=== PATIENT | male | born 1970 | race Caucasian/White ===

== ENCOUNTER 2019-12-03 00:28 | Day surgery (SDC) | payer OTHER, SELFPAY ==
[2019-11-30 09:46] VITALS: BMI 34.9
[2019-12-03 09:40] VITALS: BP 154/93; PULSE 52; RESP 18; TEMP 36.1; O2SAT 99; BMI 34.4
[2019-12-03] MEDS: LACTATED RINGERS 1,000 ML 150 ML IV CONT (09:48)
--- NOTE | 2019-12-03 09:51 | WPDANESEPPF ---
Anes - Initial Pre Proc Eval Procedure: Operation Date: 12/03/19 10:30 Proposed Procedures p Screening Colonoscopy - Jonathon Dodd MD Date/Time: 12/03/19 09:51 Surgeon: Jonathon Dodd MD Pre Op Diagnosis: neoplasm screening Patient Data Age: 49 Gender: M Height: 6 ft 9 in Weight: 145.9 kg Last Vital Signs Temp 36.1 C L 12/03/19 09:40 Pulse 52 L 12/03/19 09:40 Resp 18 12/03/19 09:40 BP 154/93 H 12/03/19 09:40 Pulse Ox 99 12/03/19 09:40 Allergies Allergy/AdvReac Type Severity Reaction Status Date / Time No Known Allergies Allergy Mild Verified 12/03/19 09:38 Home Medications Medication Instructions Recorded Confirmed Type aspirin 81 mg tablet,delayed 81 mg PO DAILY 10/28/19 11/30/19 History release cyanocobalamin (vitamin B-12) 1,000 mcg PO DAILY 10/28/19 11/30/19 History 1,000 mcg capsule multivitamin 1 tablet PO DAILY 10/28/19 11/30/19 History ferrous sulfate 325 mg (65 mg 325 mg PO DAILY #90 tablet 11/08/19 11/30/19 Rx iron) tablet allopurinol 300 mg tablet 300 mg PO DAILY #30 tablet 11/29/19 11/30/19 Rx colchicine 0.6 mg capsule 0.6 mg PO BID #60 cap 11/29/19 11/30/19 Rx Patient hx anesthesia problems: none Family hx anesthesia problems: none PMFSH Past Medical History Medical History (Updated 12/03/19 @ 09:52 by Trace Alvarez MD) Gout History of atrial fibrillation Surgical History Surgical History H/O gastric bypass 2008 H/O laminectomy 2002 Family History Family History Father Diabetes mellitus Gout Hypertension Acute myocardial infarction Grandparent Heart disease Rheumatoid arthritis Acute myocardial infarction H/O heart bypass surgery Sibling Gout Rheumatoid arthritis Hypertension Social History Social History Smoking status: Never smoker Alcohol intake: current Anes - Eval Final PreProcedure Day of Procedure 12/03/19 09:51 Patient weight: obese Heart: regular rate and rhythm Lungs: clear to auscultation Airway: Mallampati scale class II Neurological: alert and oriented Last oral intake: >/= 8 hours ASA classification: III Emergent: no Anesthetic plan: proceed Anesthesia type and monitoring: general GIVS and standard monitoring Informed Consent: The patient's anesthetic plan and its attendant risks and benefits were discussed with the patient/family/POA. Questions were solicited and answers provided to the satisfaction of the patient/family/POA.
--- NOTE | 2019-12-03 09:58 | PM.HPGS ---
History of Present Illness History of Present Illness Consent: Risks, benefits, and alternatives have been discussed and questions answered. Patient agrees to proceed with procedure. Chief complaint: neoplasm screening Narrative: Brian Bello is a 49 year old W male referred for his 1st screening colonoscopy. Patient is asymptomatic and there is no family history of colon polyps or colon cancer. Patient underwent gastric bypass 2008 and lost 215 lb. [facility] Past Medical History Medical History (Updated 12/03/19 @ 09:52 by Trace Alvarez MD) Gout History of atrial fibrillation Surgical History Surgical History H/O gastric bypass 2008 H/O laminectomy 2002 Family History Family History Father Diabetes mellitus Gout Hypertension Acute myocardial infarction Grandparent Heart disease Rheumatoid arthritis Acute myocardial infarction H/O heart bypass surgery Sibling Gout Rheumatoid arthritis Hypertension Social History Social History Smoking status: Never smoker Alcohol intake: current Meds Home Medications and Allergies Home Medications Medication Instructions Recorded Confirmed Type aspirin 81 mg tablet,delayed 81 mg PO DAILY 10/28/19 11/30/19 History release cyanocobalamin (vitamin B-12) 1,000 mcg PO DAILY 10/28/19 11/30/19 History 1,000 mcg capsule multivitamin 1 tablet PO DAILY 10/28/19 11/30/19 History ferrous sulfate 325 mg (65 mg 325 mg PO DAILY #90 tablet 11/08/19 11/30/19 Rx iron) tablet allopurinol 300 mg tablet 300 mg PO DAILY #30 tablet 11/29/19 11/30/19 Rx colchicine 0.6 mg capsule 0.6 mg PO BID #60 cap 11/29/19 11/30/19 Rx Allergies Allergy/AdvReac Type Severity Reaction Status Date / Time No Known Allergies Allergy Mild Verified 12/03/19 09:38 Vital Signs Vital Signs - 24 hr 12/03/19 09:40 Temperature 36.1 C L Pulse Rate 52 L Respiratory Rate 18 Blood Pressure 154/93 H Pulse Oximetry 99 Exam Const: Orientation/consciousness: patient oriented x3 Resp: Auscultation: clear to auscultation bilaterally Cardio: Rate: regular rate Rhythm: regular rhythm Heart sounds: no murmurs GI: GI Palp: Yes Soft to palpation, No Tenderness to palpation present (GI), Yes No hepatosplenomegaly present and No Palpable mass present Auscultation: normal bowel sounds Neuro: General: patient oriented x3 and no focal motor deficits Extrem: General: no pedal edema Assessment and Plan Additional Plan Screening colonoscopy in average risk patient
[2019-12-03 10:58] VITALS: BP 129/95; PULSE 116; RESP 22; O2SAT 100
[2019-12-03 11:08] VITALS: BP 132/100; BP 133/98; PULSE 100; PULSE 99; RESP 22; RESP 26; O2SAT 100
== END 2019-12-03 11:32 | disposition home or self-care (01) ==
PROVIDERS: PCP Internal Medicine; Visit Provider Internal Medicine Gastroenterology
PROC: 0DJD8ZZ Inspection of Lower Intestinal Tract, Via Natural or Artificial Opening Endoscopic (ICD-10-PCS; CPT 45378; principal; 2019-12-03 10:30)
DX: Z12.11 Encounter for screening for malignant neoplasm of colon (principal); D12.5 Benign neoplasm of sigmoid colon; M10.9 Gout, unspecified; Z79.82 Long term (current) use of aspirin; Z98.84 Bariatric surgery status; E66.9 Obesity, unspecified; Z68.34 Body mass index [BMI] 34.0-34.9, adult
CPT/HCPCS: 45385; 88305; J2704; J7120

== ENCOUNTER 2020-12-27 12:02 | Outpatient (CLI) | payer OTHER, SELFPAY ==
--- NOTE | ~2020-12-27 | XR_ITS ---
XR lumbar spine 2-3V DATE: 12/27/2020 12:29 INDICATION: Low back pain TECHNIQUE: AP, lateral and coned lateral lumbosacral COMPARISON: None FINDINGS: There is diffuse osteopenia. There is prominent rotatory levoscoliosis of the lumbar spine. There is severe degenerative disc disease throughout the lumbar and lumbosacral spine. No fracture or bone destruction. The lumbar pedicles are intact. The sacroiliac joints are normal. IMPRESSION: Diffuse osteopenia Rotatory levoscoliosis Severe degenerative disc disease Reviewed, dictated and finalized at location A.
--- NOTE | ~2020-12-27 | XR_ITS ---
EXAMINATION: XR hip LT min 2V DATE: 12/27/2020 12:29 INDICATION: Left hip pain. TECHNIQUE: 2 views of left hip were obtained. COMPARISON: None. FINDINGS: Bone alignment is normal. No fracture. There is mild left hip osteoarthritis. IMPRESSION: 1. Mild left hip osteoarthritis. Reviewed, dictated and finalized at location A.
== END 2020-12-27 12:03 | disposition home or self-care (01) ==
PROVIDERS: PCP Internal Medicine; Visit Provider Clinical Nurse Specialist
DX: M85.88 Other specified disorders of bone density and structure, other site (principal); M51.36 Other intervertebral disc degeneration, lumbar region; M16.12 Unilateral primary osteoarthritis, left hip
CPT/HCPCS: 72100; 73502

== ENCOUNTER 2021-04-03 14:00 | Outpatient (RCR) | payer OTHER, SELFPAY ==
--- NOTE | 2021-02-19 16:26 | PTOPEVAL ---
PHYSICAL THERAPY EVALUATION AND PLAN OF CARE Thank you for referring Brian Bello to [facility].? The patient is scheduled to be seen for therapy?1x/week for 4-6 weeks. Please review, sign, date and return this plan of care CATHI. I agree with and certify that the following plan of care is medically necessary. Referring Physician Date Attending Provider: Laurita Retana, SERVER ADMINISTRATOR Evaluation Outpatient Past Medical History Neurological History Hx Neurological Disorders No Significant History Cardiovascular History Hx Atrial Fibrillation Yes: cardio verted into rhythm no meds x2 last time 2009? Respiratory History Hx Respiratory Disorders No Significant History Gastrointestinal History Hx Gastric Bypass Surgery Yes: 2009 Genitourinary History Hx Genitourinary Disorders No Significant History Musculoskeletal History Hx Gout Yes Hx Spinal Surgery Yes: laminectomy lumbar 2002 Hematological History Hx Blood Transfusion Reaction Yes: post gastric bypass 2009 Endocrine History Diagnosis back pain Cause chronic Subjective Information 2002 laminectomy but does not Query Text:As Reported By Patient/ think that the surgery went Family very well at the time and now as he is getting older he is feeling more symptoms. 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 Reports that he has general achiness after a day of work and activity (yard work, etc). 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 reports that he does have pain that goes down the left leg and describes it as sometimes a falling asleep feeling. States that the leg pain is really the biggest aggravating factor right now, but states that his back is hurting daily . Reports that he has been trying to do piriformis stretches after he exercises. Self Report Pain Assessment Back Reported Pain Level 2 Pain Description Aching Pain Frequency Chronic,Continuous Pain Aggravating Factors Exercise/Activity,Lifting Pain Score Pain Score 2: Self Report Interventions Used Interventi
--- NOTE | 2021-04-03 14:43 | PTOPEVAL ---
PHYSICAL THERAPY DISCHARGE NOTE Thank you for referring Brian Bello to [facility].? Please review, sign, date and return this plan of care CATHI. I agree with and certify that the following plan of care is medically necessary. Referring Physician Date Attending Provider: Laurita Retana, HEALTH INFORMATION MANAGEMENT DIRECTOR Discharge Diagnosis back pain Cause chronic Subjective Information reports that he has been Query Text:As Reported By Patient/ overall doing well except this Family weekend he stood for 4 hours and since then has been aggravated. He states that he can bend forward but feels like he cannot bend backward - feels like there is a lot of pain in the low back Self Report Pain Assessment Back Reported Pain Level 1 Pain Description Aching Pain Frequency Chronic,Continuous Pain Aggravating Factors Exercise/Activity,Lifting Pain Score Pain Score 1: Self Report Interventions Used Interventions Used By Clinicians Exercise,Joint Mobilization Cervical and Lumbar ROM Lumbar ROM Lumbar Flexion Active Floor Query Text:Hands to: Lumbar Extension (0-40) 15 Query Text:Active in Degrees Lateral Flexion lateral flexion symmetrical to Query Text:Active Hands to: lateral side of knee Lower Extremity Muscle Strength Testing Hip Strength Bilateral Hip Flexion Strength 5 Normal Hip Extension Strength 4+ Good + Hip Abduction Strength 4+ Good + Knee Strength Bilateral Knee Flexion Strength 5 Normal Knee Extension Strength 5 Normal Ankle Strength Bilateral Ankle Strength Comments unilateral heel raises progressing Muscle Length Testing Muscle Length Testing Latissmus Dorsi Muscle Length (R) Mild Tightness,(L) Mild Tightness [place] Test Shortened Muscles Short (R) Iliopsoas,Short (L) Iliopsoas,Short (R) Rectus Femoris,Short (L) Rectus Femoris Piriformis w/Hip Flexion >90 Degrees (R) Mild Tightness,(L) Mild Tightness Left Hamstring Length -10 Query Text:(90 - 90 Position) Right Hamstring Length -10 Query Text:(90 - 90 Position) Right Prone Knee Flexor Muscle Length ( 100 degrees) Left Prone Knee Flexor Muscle Length ( 100 degrees) Posture Standing Position Posture Evaluation View Anterior Thoracic Spine Posture Neutral
== END 2021-04-04 11:14 | disposition home or self-care (01) ==
LOC: ANHPT 14:00
PROVIDERS: PCP Internal Medicine; Visit Provider Nurse Practitioner Adult Health
DX: M54.16 Radiculopathy, lumbar region (principal); M54.42 Lumbago with sciatica, left side; G89.29 Other chronic pain
CPT/HCPCS: 97110; 97162

== ENCOUNTER 2022-02-21 09:41 | Outpatient (CLI) | payer OTHER, SELFPAY ==
--- NOTE | ~2022-02-21 | US_ITS ---
EXAMINATION: US venous doppler [facility] DATE: 02/21/2022 11:01 INDICATION: Left lower limb pain TECHNIQUE: Chou scale images without and with compression and Doppler images of the left lower extrem ity veins were obtained. COMPARISON: None FINDINGS: The left common femoral vein, profunda femoral vein, femoral vein, popliteal vein, peroneal trunk, posterior tibial veins, and greater saphenous vein are patent. There is partial thrombosis in the greater saphenous vein. IMPRESSION: 1. Superficial, partial thrombosis of the greater saphenous vein. No evidence of deep venous thrombos is. Reviewed, dictated and finalized at location A. IMPRESSION: 1. Superficial, partial thrombosis of the greater saphenous vein. No evidence o f deep venous thrombosis.
== END 2022-02-21 09:42 | disposition home or self-care (01) ==
PROVIDERS: PCP Internal Medicine; Visit Provider Internal Medicine
DX: M79.89 Other specified soft tissue disorders (principal); I82.812 Embolism and thrombosis of superficial veins of left lower extremity
CPT/HCPCS: 93971

== ENCOUNTER 2023-02-13 12:41 | Emergency (ER) | payer OTHER, SELFPAY ==
[2023-02-13 12:54] VITALS: BP 144/100; PULSE 80; RESP 16; TEMP 36.6; O2SAT 99
--- NOTE | 2023-02-13 12:54 | ED.URI ---
HPI - URI/Sore Throat General Chief Complaint: Upper Respiratory Infection Stated Complaint: sore throat,cough,congestion Time Seen by Provider: 02/13/23 12:54 Source: patient and RN notes reviewed Mode of arrival: ambulatory Limitations: no limitations History of Present Illness HPI Narrative: 52-year-old male presented for complaint of sinus congestion with mild drainage, sore/scratchy throat, and nonproductive cough for almost 2 weeks. Endorses fatigue today. Taking Joie-Mcneal sinus medication. Denies shortness of breath, wheezing, nausea vomiting, diarrhea, fevers or chills. States granddaughter is sick and attends daycare. MD elicited complaint: cough Related Data Home Medications Medication Instructions Recorded Confirmed aspirin 81 mg tablet,delayed 81 mg PO DAILY 10/28/19 02/13/23 release (Adult Low Dose Aspirin) cyanocobalamin (vitamin B-12) 1,000 mcg PO DAILY 10/28/19 02/13/23 1,000 mcg capsule multivitamin 1 tablet PO DAILY 10/28/19 02/13/23 ferrous sulfate 325 mg (65 mg 325 mg PO DAILY 10/30/22 02/13/23 iron) tablet (Feosol) Allergies Allergy/AdvReac Type Severity Reaction Status Date / Time No Known Allergies Allergy Mild Verified 02/13/23 12:51 Review of Systems Review of Systems: CONSTITUTIONAL: Endorses malaise, Denies chills, sweats, fever EYES: Denies visual changes, redness, or discharge ENT: Reports sore throat, congestion, denies sinus pain, otalgia CARDIOVASCULAR: Denies chest pain, palpitations, edema RESPIRATORY: Reports cough, post nasal drainage. Denies dyspnea GASTROINTESTINAL: Denies abdominal pain, nausea, vomiting, diarrhea SKIN: Denies rash or itching MUSCULOSKELETAL: Denies myalgia NEUROLOGIC: Denies headache PMFSH Past Medical History Medical History Family history of diabetes mellitus Gout History of atrial fibrillation Surgical History Surgical History H/O cardiac radiofrequency ablation 10/09/2021 H/O gastric bypass 2009 H/O laminectomy 2002 Family History Family History Father Diabetes mellitus Gout Hypertension Acute myocardial infarction Grandparent Heart disease Rheumatoid arthritis Acute myocardial infarction H/O heart bypass surgery Sibling Gout Rheumatoid arthritis Hypertension Social History Social History Smoking status: Never smoker Alcohol intake: former Lack of Transportation: No Lack of Food: Never True Current Housing: I Have Housing Concerned About Future Housing: No Difficulty Paying Gas/Electric Bills: No Difficulty Paying for Meds: No Currently Unemployed: No Education: Master's Degree or Higher Difficulty w/ Childcare or Family Care: No Exam Narrative: GENERAL: well-appearing, nontoxic no acute distress. HEAD: Normocephalic EYES: PERRLA, conjunctivae clear ENT: Mucous membranes moist. TM pearly webb with dull light reflex bilaterally; no tragal tenderness. Oropharynx mildly erythematous without lesions or exudate, no drooling, no hoarseness, no trismus, uvula midline. No tripod positioning, muffled voice, soft palate or pharyngeal wall bulging NECK: Supple. No lymphadenopathy CHEST: Clear to auscultation, breath sounds equal. No wheezing, rhonchi, rales, or stridor. No respiratory distress, speaks in full sentences. HEART: Regular rate and rhythm. No murmur heard. SKIN: Warm, dry, no rash. NEURO: Alert and oriented x3. PSYCH: Normal mood and affect Course Course Emergency Course: Patient is aware of diagnosis, understands and agrees to treatment plan. Anticipatory guidance given. Patient agrees to follow-up as directed and is aware of reasons to seek care at the emergency department. Portions of this record may have been created with voice re
== END 2023-02-13 13:10 | disposition home or self-care (01) ==
PROVIDERS: Emergency Provider Nurse Practitioner Family; PCP Internal Medicine
DX: J06.9 Acute upper respiratory infection, unspecified (principal); H10.9 Unspecified conjunctivitis; Z98.84 Bariatric surgery status; Z79.82 Long term (current) use of aspirin
CPT/HCPCS: 87081; 87880; 99213; G0463

== ENCOUNTER 2023-05-07 08:41 | Outpatient (CLI) | payer OTHER, SELFPAY ==
--- NOTE | 2023-05-17 17:50 | WPDHOMESLEEP ---
Sleep Study - Home Unattended Date of Study: 05/07/23 Ordering Provider: Brian Riley DO Interpreting Provider: Monica Styles DO Home Sleep Study Type: Watch PAT Height: 2.06 m Weight: 141.974 kg Body Mass Index: 33.5 Neck Circumference (inches): 18 [place]: 7 Reason for Sleep Study Unrefreshing sleep, daytime hypersomnia Sleep History The patient is a 52-year-old male with gout, hypogonadism, obesity and history of atrial fibrillation that had a sleep study ordered by his primary care physician for evaluation of sleep apnea. 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 He denies awakening from sleep short of breath. He denies awakening at night with heartburn, belching or cough. He rarely snores and is rarely loud enough that others complain. He denies having trouble sleeping when he has a cold. He denies waking up gasping for air throughout the night. He denies having breathing problems at night observed by himself or others. He denies sweating excessively at night. He denies having heart palpitations or irregular heartbeats during the night. He frequently falls asleep during the day but never while driving. He denies sleep paralysis, cataplexy and hypnagogic / hypnopompic hallucinations. He occasionally has trouble at school or work due to sleepiness. He denies feeling afraid of going to sleep. He denies having nightmares. He occasionally remembers his dreams. He occasionally has thoughts racing through his mind. He rarely feels sad or depressed. He occasionally has anxiety. He denies having muscular tension. He denies noticing parts of his body jerk. He denies kicking during the night. He occasionally has crawling and aching feelings in his legs and occasionally has leg pain during the night. He denies grinding his teeth during sleep and denies awakening with morning jaw pain. He is occasionally bothered by pain during the day but rarely awakened by pain during the night. He occasionally wakes up feeling stiff in the morning. He denies waking up with sore or achy muscles. He occasionally wakes up with pain in the neck, spine or other joints. The patient goes to bed at 11:00 p.m. on weekdays and at 11:30 p.m. on the weekends. It takes him 5-10 minutes fall asleep. He wakes up 1-2 times throughout the night to urinate or change positions. He is able to fall back asleep within 5 minutes. He wakes up at 5:30 a.m. on weekdays and at 6:00 a.m. on the weekends. He typically gets 5-6 hours of sleep per night. He will stay in bed for 1 minute after waking up in the morning. He currently lives with his , adult child and mother. He will consume caffeinated beverages within 2 hours of bedtime. He does not engage in physical exercise before bedtime. He will watch television before falling asleep. He will take naps in the afternoon or the evening and they are refreshing. He consumes 12 cups of coffee per day. He consumes 2 alcoholic beverages per day. He denies tobacco and recreational drug use. [facility] Past Medical History Medical History Family history of diabetes mellitus Gout History of atrial fibrillation Long-term current use of testosterone cypionate Surgical History Surgical History H/O cardiac radiofrequency ablation 10/09/2021 H/O gastric bypass 2008 H/O laminectomy 2002 Family History Family History Father Diabetes mellitus Gout Hypertension Acute myocardial infarction Grandparent Heart disease Rheumatoid arthritis Acute myocardial infarction H/O heart bypass surgery Sibling Gout Rheumatoid arthritis Hypertension Social History Social History Smoking status: Never smoker Alcohol intake: former Lack of Transpo
[2023-05-17 18:00] VITALS: BMI 33.5
== END 2023-05-08 08:13 | disposition home or self-care (01) ==
LOC: ANHCSM 08:41
PROVIDERS: PCP Internal Medicine; Visit Provider Internal Medicine
DX: G47.19 Other hypersomnia (principal); G47.33 Obstructive sleep apnea (adult) (pediatric)
CPT/HCPCS: 95800

== ENCOUNTER 2024-06-16 10:03 | Outpatient (RCR) | payer OTHER, SELFPAY ==
--- NOTE | 2024-06-16 12:52 | PTOPEVAL1 ---
Assessment and note entered by Tucker Shetty, PT, DPT Evaluation Information Assessment Status Evaluation Diagnosis juan shoulder pain ICD-10 Condition Codes (PT) M25.511,M25.512 Subjective Information Pt reports chronic R shoulder pain, he states he feels a popping sound when he is working out. About a month ago he was doing incline chest press , he did not notice and pain during but noticed a pain in his L bicep and tricep pain with activity. He states his L shoulder has been getting progressively better but is still bothersome. He states for a while he has limited ROM and strength for about a month, he states he is back to his normally weight except for any overhead. Reported Pain Level Pain Score 1: Self Report Assessment PT Clinical Summary Pt presents to therapy today for his initial evaluation with a complaint of acute L shoulder pain. Today he demonstrates decreased L active shoulder ROM and strength when compared to his R side. His scapulae rest in a protracted position and has a moderate amount of winging. With active abduction he has poor scapular control with accessory upper trap activation. He demonstrates excessive winging in a closed chair position. Skilled therapy services are indicated to address strength and stability concerns, to improve shoulder mechanics, to manage pain, and to return to PLOF. Plan of Care Interventions Electrical Stimulation,Manual Therapy,Neuro Re- education,Patient/Caregiver Educati,Therapeutic Activities,Therapeutic Exercise PT Services Indicated Yes Treatment Frequency and 1x/wk for 4 visits Duration These treatments will address the objective and functional deficits as defined above. The patient will be advanced safely and appropriately in order for the patient to progress towards his/her prior level of function. Additional exercises will be introduced and as well as a comprehensive home exercise program upon discharge, if needed, ?to ensure carryover of functional gains achieved in the clinic. This treatment plan has been reviewed and agreement upon by the patient.
--- NOTE | 2024-07-05 11:38 | PTOPDC ---
Assessment and note entered by Tucker Shetty, PT, DPT Evaluation Information Assessment Status Discharge - Pt Not Present Diagnosis juan shoulder pain ICD-10 Condition Codes (PT) M25.511,M25.512 Subjective Information Pt called to follow up, states he is doing well with his HEP and does not need to continue therapy . Assessment PT Clinical Summary Pt was evaluated on 06/16/24 and has been participating in an HEP since. Will be discharged at this time per his request.
== END 2024-07-05 16:02 | disposition home or self-care (01) ==
LOC: ANHGOSHPT 10:03
PROVIDERS: PCP Internal Medicine; Visit Provider Internal Medicine
DX: M77.8 Other enthesopathies, not elsewhere classified (principal); M25.511 Pain in right shoulder; M25.512 Pain in left shoulder
CPT/HCPCS: 97110; 97161; 97530

== ENCOUNTER 2025-01-14 00:24 | Day surgery (SDC) | payer OTHER, SELFPAY ==
[2025-01-03 14:25] VITALS: BMI 27.8
--- OUTSIDE RECORDS SUMMARY | 2025-01-14 00:27 | XMS_ITS | CONTINUITY OF CARE DOCUMENT ---
Author Name gita pelayo Address Unknown Organization [facility] Address [address] [address] [place] [address] Phone [phone] Care Team Providers Care Pie Cutter Name Role Phone Darlyn HULL, Tano Unavailable STEPHY MARTINEZ MD Unavailable STEPHY MARTINEZ MD Unavailable [phone] PROBLEMS Condition Status Date Provider Notes Other symptoms involving car diovascular system active Tano Santizo MD Family History of Hypertension: active ? Jose Santizo MD Palpitations active Tano Santizo MD Gout active Tano Santizo MD Obesity active Tano Santizo MD Atrial Fibrillation active Tano Santizo MD ENCOUNTERS Date Type Provider Location Encounter Diag nosis - In-person encounter Office Visit Tano Santizo MD [facility] - In-person encounter Office Visit Tano Santizo MD [facility] Other symptoms involving cardiovascular systemFamily History of Hypertension:Palpitati onsGoutObesityAtrial Fibrillation VITAL SIGNS Date Observation Value Provider Body Mass Index (Ratio) 35.92 kg/m2 Jose Santizo MD blood pressure, cuff size large Cr dania Murphy blood pressure, diastolic 100 mm[Hg] Cr dania Murphy blood pressure, systolic 130 mm[Hg] Cry stal Jeffrey oxygen saturation, oximetry 98 % Mireya Murphy respiratory rate E&M 17 /min Mireya Murphy pulse rate 64 /min Mireya forrester weight E&M 327 [lb_av] Mireya forrester height E&M 80 [in_i] Mireya forrester Body Mass Index (Ratio) 37.24 kg/m2 Jose Santizo MD blood pressure, resting No Rodrigo Herronby blood pressure, diastolic 80 mm[Hg] Hernesto King blood pressure, systolic 120 mm[Hg] Rosy King oxygen saturation, oximetry 98 % Jazmín King respiratory rate E&M 16 /min Jazmín King pulse rate 68 /min Jazmín King blood pressure, cuff size regular Hernesto King height E&M 80 [in_i] Jazmín King weight E&M 339 [lb_av] Jazmín [place] ALLERGIES No Known Drug Allergies HISTORY OF MEDICATION USE Medication Status Instructions Dates Provider Indications Com ments LEV ASPIRIN EC LOW DOSE 81 MG ORAL TABLET DELAYED RELEASE active take one tablet by mouth once daily Mireya Murphy MITIGARE 0.6 MG ORAL CAPSULE active take one capsule by mouth once daily Mireya Murphy #180, 90 days supply, Filled 01/01/2018 B-12 100 MCG ORAL TABLET active TAKE ONE TABLET BY MOUTH ONCE DAILY Jazmín King MULTIVITAMINS ORAL CAPSULE active TAKE ONE TABLET BY MOUTH ONCE DAILY Jazmín King COLCRYS TABLET completed ONCE DAILY - Mireya Murphy ALLOPURINOL 100 MG ORAL TABLET active TAKE ONE TABLET BY MOUTH ONCE DAILY Jazmín King SOCIAL HISTORY Date Observation Value Provider social history E&M Marital Statu s: Renny hildren: 3 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 Tano Santizo MD social history reviewed E&M revi ewed - no changes required Tano Santizo MD number of grandchildren Tano King smoking status Never smoker Jazmín King FAMILY HISTORY Family Member Condition Full Brother Family History of Hy pertension: Father Family History of Co ngestive Heart Failure: Father Family History of Di abetes: INSURANCE PROVIDERS Payer name Policy type / Coverage type [place] red [employer] party ID AETNA [facility] Other [id number] ADVANCE DIRECTIVES Name Date DISCUSSED - NO DECISION MADE TREATMENT PLAN Date Name Performer Cardiology Tano Santizo MD Cardiology Tano Santizo MD Cardiology Tano Santizo MD Cardiology Tano Santizo MD Cardiology Tano Santizo MD Cardiology Tano Santizo MD Cardiology Tano Santizo MD Cardiology Tano Santizo MD Cardiology Tano Santizo MD Date Name STR - Nuclear Complete Echo Mobile Cardiac Tele HISTORY OF PROCEDURES Procedure Date Procedure Name Provider Procedure Notes S tatus EKG Tano Santizo MD complete d Stress EKG Stephy De Los Santos MD complet ed Cardiolite, 2 units Stephy De Los Santos MD completed SPECT Images Stephy De Los Santos MD compl eted Mobile Cardiac Telem etry - Tech Tano Santizo MD completed Mobile Cardiac Telem etry - Prof Tano Santizo MD completed EKG Tano Santizo MD complete d SNOMED-CT: [id number] Current Medications Documented Tano Santizo MD completed
--- OUTSIDE RECORDS SUMMARY | 2025-01-14 00:27 | XMS_ITS | Clinical Summary ---
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 Gender Identity Not on file Sexual Orientation Not on file Plan of Treatment Health Maintenance Due Date Last Done Comments DTAP/TDAP/TD VACCINES (1 - Tdap) 1988 HEPATITIS B VACCINES (1 of 3 - 19+ 3-dose series) 1988 COLORECTAL SCREENING 2014 Colorectal Cancer Screening 2014 FIT-DNA Q 3 years 2014 FIT/FOBT Q 1 year 2014 Flex Sig/CT Colonography Q 5 years 2014 ZOSTER VACCINE (1 of 2) 2019 INFLUENZA VACCINE (#1) 2024 PNEUMOCOCCAL VACCINE 0-49 YEARS Aged Out No longer eligible based on patient's age to complete this topic Insurance AETNA CHOICE POS II Care Teams Computer Systems Software Engineer Relationship Specialty Start Date End Date Hans Carl MD [address] [place] [address] PCP - General Internal Medicine 12/18/18
--- OUTSIDE RECORDS SUMMARY | 2025-01-14 00:27 | XMS_ITS | Referral Summary ---
Author Organization [facility] Address [address] [place] [address] Care Team Providers Care Trade Union Secretary Name Role Phone Brian Riley DO Primary Care Provider [phone] Hans Carl MD Unavailable [phone] Miscellaneous, Not In File Unavailable Unava ilable Shanice Dow PAYMENT SPECIALIST Unavailable [phone] Lucie Nance MD Unavailable Laurita Retana PAYMENT SPECIALIST Unavailable Laurita Retana PAYMENT SPECIALIST Unavailable Allergies No known active allergies Medications allopurinoL (ZYLOPRIM) 300 mg tablet Take 300 mg by mouth daily 10/26/2020 Active colchicine (COLCRYS) 0.6 mg capsule Take 0.6 mg by mouth 2 (two) times a day 10/03/2020 Active cyanocobalamin (Vitamin B-12) 100 mcg tablet Take 100 mcg by mouth daily 03/26/2017 Active aspirin 81 mg enteric coated tablet Take 81 mg by mouth daily Active metoprolol tartrate (LOPRESSOR) 50 mg immediate release tablet Take 1 tablet (50 mg total) by mouth 2 (two) times a day as needed (palpitation s/ heart rate >120) 30 tablet 09/10/2021 Active gabapentin (NEURONTIN) 300 mg capsule Take 1 capsule (300 mg total) by mouth every 8 (eight) hours 90 capsule 12/18/2021 Active Active Problems Problem Noted Date Diagnosed Date Gout 09/09/2021 Obesity 09/09/2021 Venous hypertension of left lower extremity 03/2 10/2020 Assessment & Plan (12/31/2020 8:07 PM CDT): Patient has chronic venous hypertension left lower extremity with advanced skin changes. Documented reflux mid distal GSV with incompetent cost accountant vein. Have recommended laser ablation left great saphenous vein calf vein cost accountant ligation and division with phlebectomies. The procedure, indications and all risks have been thoroughly explained to the patient he understands and agrees to proceed Atrial flutter (CMS/HCC) 05/31/2014 Overview (01/16/2017): A Fib / Flutter Lumbago 07/01/2013 Lumbar radiculopathy 07/01/2013 Immunizations Immunization Administration Dates Next Due Tdap 06/21/2018 Social History Tobacco Use Types Packs/Day Years Used Date Smoking Tobacco: Never Smokeless Tobacco: Never Tobacco Cessation:Counseling Given: No Alcohol Use Standard Drinks/Week Comments Yes 0 (1 standard drink = 0.6 oz pur e alcohol) Social Connection and Isolat ion Panel [NHANES] Answer Date Recorded In a typical week, how many times do you talk on the phone with family, friends, or neighbors? More than three times a week 09/10/2021 How often do you get togethe r with friends or relatives? More than three times a week 09/10/2021 How often do you attend chur ch or presybeterian services? More than 4 times per year 09/10/2021 Do you belong to any clubs o r organizations such as lutheran groups, unions, fraternal or athletic groups, or school groups? No 09/10/2021 How often do you attend meet ings of the clubs or organizations you belong to? Never 09/10/2021 Are you , , di vorced, , never , or living with a partner? 09/10/2021 AUDIT-C Answer Date Recorded Q1: How often do you have a drink containing alc ohol? 2-3 times a week 10/09/2021 Q2: How many drinks containi ng alcohol do you have on a typical day when you are drinking? 1 or 2 10/09/2021 Q3: How often do you have si x or more drinks on one occasion? Never 10/09/2021 Overall Financial Resource Strain (CARDIA) Answe r Date Recorded How hard is it for you to pa y for the very basics like food, housing, medical care, and heating? Not hard at all 09/10/2021 Hunger Vital Sign Answer Date Recorded Within the past 12 months, y ou worried that your food would run out before you got the money to buy more. Never true 09/10/20 21 Within the past 12 months, t he food you bought just didn't last and you didn't have money to get more. Never true 09/10/2021 PRAPARE - Transportation Answer Date Re corded In the past 12 months, has l ack of transportation kept you from medical appointments or from getting medications? No 08/14 In the past 12 months, has l ack of transportation kept you from meetings, work, or from getting things needed for daily living? No 09/10/2021 Housing Stability Vital Sign Answer Frantz e Recorded In the last 12 months, was t here a time when you were not able to pay the mortgage or rent on time? No 09/10/2021 In the last 12 months, how many places have you lived? 1 09/10/2021 In the last 12 months, was t here a time when you did not have a steady place to sleep or slept in a fpc (including now)? No 09/10/2021 Sex and Gender Information Value Date Recorded Sex Assigned at Not on file Legal Sex Male 2:16 AM GAMB CUTTER Gender Identity Not on file Sexual Orientation Not on file Last Filed Vital Signs Vital Sign Reading Time Taken Comments Blood Pressure 143/88 01/02/2022 8:08 AM CDT Pulse 65 01/02/2022 8:08 AM CDT Temperature 36.4 C (97.6 F) 01/02/2022 8:08 AM CDT Respiratory Rate 18 01/02/2022 8:08 AM CDT Oxygen Saturation 97% 01/02/2022 8:08 AM CDT Inhaled Oxygen Concentration - - Weight 170.2 kg (375 lb 3.2 oz) 12/18/2021 9:23 AM GAMB CUTTER Height 205.7 cm (6' 9 ) 12/18/2021 9:23 AM GAMB CUTTER Body Mass Index 40.21 12/18/2021 9:23 AM GAMB CUTTER Plan of Treatment Not on file Medical Devices Implanted Type Area Die Out Worker Device Identifier Shelf Expiration Date Model / Serial / Lot [employer] [id number] System 6-12fr Mvp Venous Closure Vascade - [id number] - [id number] Implanted:Qty: 1 on 10/09/2021 by Blaine Butler MD at [facility] [employer] 07/26/2023 800-612C-1 0U / [id number] / [id number] [employer] [id number] System 6-12fr Mvp Venous Closure Vascade - [id number] - [id number] Implanted:Qty: 1 on 10/09/2021 by Blaine Butler MD at [facility] [employer] 07/26/2023 800-612C-1 0U / [id number] / [id number] [employer] [id number] System 6-12fr Mvp Venous Closure Vascade - [id number] - [id number] Implanted:Qty: 1 on 10/09/2021 by Blaine Butler MD at [facility] [employer] 07/26/2023 800-612C-1 0U / [id number] / [id number] [employer] [id number] System 6-12fr Mvp Venous Closure Vascade - [id number] - [id number] Implanted:Qty: 1 on 10/09/2021 by Blaine Butler MD at [facility] [employer] 07/26/2023 800-612C-1 0U / [id number] / [id number] Insurance [facility] Advance Directives For more information, please contact: [phone] * Full Code (Latest Code Status on File) Date Activated Date Inactivated Comments 09/09/2021 9:21 AM 09/10/2021 10:16 PM Care Teams Trade Union Secretary Relationship Specialty Start Date End Date Brian Riley DO PCP - General 12/26/20 Hans Carl MD 12/26/20 Miscellaneous, Not In File 09/10/21 Shanice Dow NP Nurse Practitioner Cardiology 10/09/21 Lucie Nance MD [address] [facility], [address] [address] Consulting Physician Pain Management 12/18/21 Laurita Retana NP [address] [facility], [address] [address] Nurse Practitioner Nurse Practitioner 01/02/22 Laurita Retana, MARIBELL [address] [place] [address] Referring Physician Nurse Practitioner 01/02/22
--- OUTSIDE RECORDS SUMMARY | 2025-01-14 00:27 | XMS_ITS | Clinical Summary ---
Author Organization [facility] [employer] Address [address] [place] [address] Care Team Providers Care Cycle Analyst Name Role Phone Unavailable Primary Care Provider Unavailabl e Source Comments [facility],non-owned Affiliates and Associated Physician Practices is amultiple site organization consisting of ambulatory clinics and hospital sitesin [place], [place], [place] and [place]. This disclosure is being madepursuant to the Care Everywhere program and may not contain all information available regarding this patient. Last updated 18.[facility] [employer] Allergies No known active allergies Immunizations Name Administration Dates Next Due TDAP (7yrs+) 06/21/2018 Social History Tobacco Use Types Packs/Day Years Used Date Smoking Tobacco: Never Assessed Sex and Gender Information Value Date Recorded Sex Assigned at Not on file Gender Identity Not on file Sexual Orientation Not on file Plan of Treatment Health Maintenance Due Date Last Done Comments COLOGUARD (AGES 45-75) - COL ON CA SCREENING 1969 COLON MONITORING 1969 COLONOSCOPY - COLON CA SCREENING 1969 CT COLONOGRAPHY - COLON CA SCREENING 1969 Colorectal Cancer Screening 1969 FIT - COLON CA SCREENING 1969 FLEX SIG - COLON CA SCREENING 1969 LIPID TESTING 1969 HIV SCREENING 1984 HEPATITIS C SCREENING 06/23/1987 HEPATITIS B VACCINE (1 of 3 - 19+ 3-dose series) 1988 PNEUMOCOCCAL VACCINE 50+ (1 of 1 - PCV) 2019 ZOSTER VACCINE (1 of 2) 2019 COVID-19 VACCINE ( - 2023-2 5 season) 2024 INFLUENZA VACCINE (#1) 2024 DEPRESSION SCREENING 10/13/2024 DTAP/TDAP/TD VACCINES (2 - T d or Tdap) 06/21/2028 06/21/2018 HIB VACCINE Aged Out No longer eligi ble based on patient's age to complete this topic HPV VACCINE Aged Out No longer eligi ble based on patient's age to complete this topic MENINGOCOCCAL (Group B) VACC INE SHARED DECISION-MAKING Aged Out No longer eligibl e based on patient's age to complete this topic MENINGOCOCCAL GROUPS A/C/Y/W VACCINE Aged Out No longer eligible b ased on patient's age to complete this topic PNEUMOCOCCAL VACCINE Aged Out No long er eligible based on patient's age to complete this topic
--- OUTSIDE RECORDS SUMMARY | 2025-01-14 00:27 | XMS_ITS | Clinical Summary ---
Author Organization [facility] Address [address] [place] [address] Care Team Providers Care Svp Operations Name Role Phone Brian Riley DO Primary Care Provider [phone] Hans Carl MD Unavailable [phone] Miscellaneous, Not In File Unavailable Unava ilable Shanice Dow COFFEE SOMMELIER Unavailable [phone] Lucie Nance MD Unavailable Laurita Retana COFFEE SOMMELIER Unavailable Laurita Retana COFFEE SOMMELIER Unavailable Allergies No known active allergies Medications [...] Documented reflux mid distal GSV with incompetent clinical cytogeneticist vein. Have recommended laser ablation left great saphenous vein calf vein clinical cytogeneticist ligation and division with phlebectomies. The procedure, indications and all risks have been thoroughly explained to the patient he understands and agrees to proceed Atrial flutter (CMS/HCC) 05/31/2014 Overview (01/16/2017): A Fib / Flutter Lumbago 07/01/2013 Lumbar radiculopathy 07/01/2013 Immunizations Immunization Administration Dates Next Due Tdap 06/21/2018 Surgical History Surgery Date Site/Laterality Comments LAMINECTOMY 10/13/2000 - 10/12/2001 Laminectomy GASTRIC BYPASS 10/13/2008 - 10/12/2009 Medical History Medical History Date Comments Hx Other Medical 1993 pericarditis Abnormal ECG Atrial fibrillation (HCC) Chest pain Gout Arthritis Sciatica Family History Medical History Relation Name Comments Hypertension Brother Early Daughter Coronary artery disease Father Sue nary Artery Bypass Graft; Diabetes Father Diabetes type II Father Diabetes Ty pe II; Heart disease Father Hypertension Father Hypertension; Coronary artery disease Maternal Grandfather Coronary Artery Bypass Graft; Heart disease Maternal Grandfather Heart disease Other Hypertension Other Heart disease Paternal Grandfather Cancer Paternal Grandmother Early Paternal Grandmother Relation Name Status Comments Brother Daughter Father Alive Maternal Grandfather Alive Other Paternal Grandfather Paternal Grandmother Social History Tobacco Use Types Packs/Day Years [...] week 09/10/2021 How often do you attend [facility] or protestant services? More than 4 times per year 09/10/2021 Do you belong to any clubs o r organizations such as confucianist groups, unions, fraternal or athletic groups, or [...] place to sleep or slept in a snf (including now)? 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 CASHIER Gender Identity Not on file Sexual Orientation Not on file Obstetrics History Last Filed Vital Signs Vital Sign Reading Time Taken Comments Blood Pressure 143/88 01/02/2022 8:08 AM CDT Pulse 65 01/02/2022 8:08 AM CDT Temperature 36.4 C (97.6 F) 01/02/2022 8:08 AM CDT Respiratory Rate 18 01/02/2022 8:08 AM CDT Oxygen Saturation 97% 01/02/2022 8:08 AM CDT Inhaled Oxygen Concentration - - Weight 170.2 kg (375 lb 3.2 oz) 12/18/2021 9:23 AM SALES ASSOCIATE CASHIER Height 205.7 cm (6' 9 ) 12/18/2021 9:23 AM SALES ASSOCIATE CASHIER Body Mass Index 40.21 12/18/2021 9:23 AM SALES ASSOCIATE CASHIER Plan of Treatment Health Maintenance Due Date Last Done Comments Colon Cancer Screening-Colonoscopy 1969 Depression Screening 1969 Hepatitis C Screening 1969 Prostate Cancer Screening-PSA 1969 Hepatitis B Screening 1987 Regular Well Visit/Exam 18-64 1987 Zoster Vaccine (1 of 2) 2019 Covid-19 Vaccine (4 - 2023-2 5 season) 2024 02/19/2022, 02/02/2021, 01/12/2021 Influenza Vaccine (Season Ended) 2025 DTaP/Tdap/Td Vaccine (2 - Td or Tdap) 06/21/2028 06/21/2018 Pneumococcal vaccine <65 Aged Out No longer eligible based on patient's age to complete this topic Medical Devices Implanted Type Area Booking Supervisor Device Identifier Shelf Expiration Date Model / Serial / Lot [employer] [id number] System 6-12fr Mvp Venous Closure Vascade - [id number] - [id number] Implanted:Qty: 1 on 10/09/2021 by Blaine Butler MD at [facility] [employer] 07/26/2023 800-612C-1 0U / [id number] / [id number] [employer] [id number] System 6-12fr Mvp Venous Closure Vascade - [id number] - [id number] Implanted:Qty: 1 on 10/09/2021 by Blaine Butler MD at [facility] [employer] 07/26/2023 800-612C-1 0U / [id number] / [id number] [employer] [id number] System 6-12fr Mvp Venous Closure Vascade - [id number] - [id number] Implanted:Qty: 1 on 10/09/2021 by Blaine Butler MD at [facility] [employer] 07/26/2023 800-612C-1 0U / [id number] / [id number] [employer] [id number] System 6-12fr Mvp Venous Closure Vascade - [id number] - [id number] Implanted:Qty: 1 on 10/09/2021 by Blaine Butler MD at [facility] [employer] 07/26/2023 800-612C-1 0U / [id number] / [id number] [address] [place], [place] [address] [facility] HMO [facility] HMO Advance Directives For more information, please contact: [phone] * Full Code (Latest Code Status on File) Date Activated Date Inactivated Comments 09/09/2021 9:21 AM 09/10/2021 10:16 PM Care Teams Svp Operations Relationship Specialty Start Date End Date Brian Riley DO PCP - General 12/26/20 Hans Carl MD 12/26/20 Miscellaneous, Not In File 09/10/21 Shanice Dow NP Nurse Practitioner Cardiology 10/09/21 Lucie Nance MD [facility], [address] [address] Consulting Physician Pain Management 12/18/21 Laurita Retana NP [address] [place] [address] PAIN CENTER, [address] [address] Nurse Practitioner Nurse Practitioner 01/02/22 Laurita Retana NP [address] [place] [address] Referring Physician Nurse Practitioner 01/02/22
[2025-01-14 11:01] VITALS: BP 145/91; PULSE 54; RESP 18; TEMP 36.1; O2SAT 100
[2025-01-14] MEDS: LACTATED RINGERS 1,000 ML 150 ML IV CONT (11:11)
--- NOTE | 2025-01-14 11:15 | P.PNAN_ITS ---
Anes - Initial Pre Proc Eval Procedure: Operation Date: 01/14/25 12:30 Proposed Procedures p Colonoscopy - Tam Miranda MD Date/Time: 01/14/25 11:15 Surgeon: Tam Miranda MD Pre Op Diagnosis: hx of colon polyps Patient Data Age: 54 Gender: M Height: 2.06 m Weight: 117.2 kg Last Vital Signs Temp 97 F L 01/14/25 11:01 Pulse 54 L 01/14/25 11:01 Resp 18 01/14/25 11:01 BP 145/91 H 01/14/25 11:01 Pulse Ox 100 01/14/25 11:01 O2 Del Method Room Air 01/14/25 11:01 Allergies Allergy/AdvReac Type Severity Reaction Status Date / Time No Known Allergies Allergy Mild Verified 01/14/25 11:00 Home Medications ?Medication ?Instructions ?Recorded ?Confirmed ?Type aspirin 81 mg tablet,delayed 81 mg PO DAILY 10/28/19 01/14/25 History release (Adult Low Dose Aspirin) cyanocobalamin (vitamin B-12) 1,000 mcg PO DAILY 10/28/19 01/14/25 History 1,000 mcg capsule multivitamin 1 tablet PO DAILY 10/28/19 01/14/25 History ferrous sulfate 325 mg (65 mg 325 mg PO DAILY 10/30/22 01/14/25 History iron) tablet (Feosol) syringe with needle 3 mL 23 x 1 #50 ea 11/10/23 08/16/24 Rx (BD Eclipse Luer-Radha) syringe with needle, safety 3 mL #100 ea 11/10/23 08/16/24 Rx 18 gauge x 1 1/2 (Easy Touch FlipLock Syringe) testosterone cypionate 200 mg/mL 140 mg (0.7 mL) IM WEEKLY #10 mL 06/21/24 01/03/25 Rx intramuscular oil (Depo-Testosterone) tadalafil 10 mg tablet (Cialis) 10 mg PO DAILY PRN sexual activity 09/07/24 01/03/25 Rx #10 tabs colchicine 0.6 mg tablet 0.6 mg PO BID #60 tabs 09/24/24 01/14/25 Rx tirzepatide (weight loss) 12.5 See Rx Instructions .Route 11/29/24 01/03/25 Rx mg/0.5 mL subcutaneous pen injector .COMPLEX #6 mL allopurinol 300 mg tablet See Rx Instructions .Route 12/20/24 01/14/25 Rx .COMPLEX #90 tabs Patient hx anesthesia problems: none Family hx anesthesia problems: none Results Review: All pre-operative results and documents have been reviewed as part of the pre- operative evaluation. [facility] Past Medical History Medical History History of morbid obesity Long-term current use of testosterone cypionate Family history of diabetes mellitus History of atrial fibrillation Gout Surgical History Surgical History H/O cardiac radiofrequency ablation 10/09/2021 H/O laminectomy 2002 H/O gastric bypass 2008 Family History Family History Father Diabetes mellitus Gout Hypertension Acute myocardial infarction Grandparent Heart disease Rheumatoid arthritis Acute myocardial infarction H/O heart bypass surgery Sibling Gout Rheumatoid arthritis Hypertension Social History Social History Smoking status: Never smoker Alcohol intake: current Drinks per week: 12 Substance use: never Substance use type: does not use Lack of Transportation: No Lack of Food: Never True Current Housing: I Have Housing Concerned About Future Housing: No Difficulty Paying Gas/Electric Bills: No Difficulty Paying for Meds: No Currently Unemployed: No Education: Master's Degree or Higher Difficulty w/ Childcare or Family Care: No Living arrangements: with family Spiritual care concerns: No Anes - Eval Final PreProcedure Day of Procedure 01/14/25 11:15 Patient weight: obese Lungs: normal air movement Airway: Mallampati scale class II Neurological: alert and oriented Last oral intake: >/= 8 hours ASA classification: II Emergent: no Anesthetic plan: proceed Anesthesia type and monitoring: general GIVS and standard monitoring Results Review: All pre-operative results and documents have been reviewed as part of the pre- operative evaluation. RAMEZ mild by home sleep study, GLP1 held for 11-12 days. Pt has lost 300+ pounds over the last 10 years or so by bariatric sx/GLP1, now works out daily without cp or sob. Informed Consent: The patient's anesthetic plan and its attendant risks and benefits were discussed with the patient/family/POA. Questions were solicited and answers provided to the satisfaction of the patient/family/POA.
--- NOTE | 2025-01-14 12:23 | PM.IMHP ---
H&P: HPI History of Present Illness Date/Time: 01/14/25 12:23 Chief Complaint: Screening colonoscopy Narrative: This is the patient's 2nd screening colonoscopy.There are no GI symptoms and there is no family history of colorectal cancer. Review of Systems Review of Systems: All systems reviewed & are unremarkable except as noted in HPI and below PMFSH Past Medical History Medical History History of morbid obesity Long-term current use of testosterone cypionate Family history of diabetes mellitus History of atrial fibrillation Gout Surgical History Surgical History H/O cardiac radiofrequency ablation 10/09/2021 H/O laminectomy 2002 H/O gastric bypass 2008 Family History Family History Father Diabetes mellitus Gout Hypertension Acute myocardial infarction Grandparent Heart disease Rheumatoid arthritis Acute myocardial infarction H/O heart bypass surgery Sibling Gout Rheumatoid arthritis Hypertension Social History Social History Smoking status: Never smoker Alcohol intake: current Drinks per week: 12 Substance use: never Substance use type: does not use Lack of Transportation: No Lack of Food: Never True Current Housing: I Have Housing Concerned About Future Housing: No Difficulty Paying Gas/Electric Bills: No Difficulty Paying for Meds: No Currently Unemployed: No Education: Master's Degree or Higher Difficulty w/ Childcare or Family Care: No Living arrangements: with family Spiritual care concerns: No Meds Home Medications and Allergies Home Medications ?Medication ?Instructions ?Recorded ?Confirmed ?Type aspirin 81 mg tablet,delayed 81 mg PO DAILY 10/28/19 01/14/25 History release (Adult Low Dose Aspirin) cyanocobalamin (vitamin B-12) 1,000 mcg PO DAILY 10/28/19 01/14/25 History 1,000 mcg capsule multivitamin 1 tablet PO DAILY 10/28/19 01/14/25 History ferrous sulfate 325 mg (65 mg 325 mg PO DAILY 10/30/22 01/14/25 History iron) tablet (Feosol) syringe with needle 3 mL 23 x 1 #50 ea 11/10/23 08/16/24 Rx (BD Eclipse Luer-Radha) syringe with needle, safety 3 mL #100 ea 11/10/23 08/16/24 Rx 18 gauge x 1 1/2 (Easy Touch FlipLock Syringe) testosterone cypionate 200 mg/mL 140 mg (0.7 mL) IM WEEKLY #10 mL 06/21/24 01/03/25 Rx intramuscular oil (Depo-Testosterone) tadalafil 10 mg tablet (Cialis) 10 mg PO DAILY PRN sexual activity 09/07/24 01/03/25 Rx #10 tabs colchicine 0.6 mg tablet 0.6 mg PO BID #60 tabs 09/24/24 01/14/25 Rx tirzepatide (weight loss) 12.5 See Rx Instructions .Route 11/29/24 01/03/25 Rx mg/0.5 mL subcutaneous pen injector .COMPLEX #6 mL allopurinol 300 mg tablet See Rx Instructions .Route 12/20/24 01/14/25 Rx .COMPLEX #90 tabs Allergies Allergy/AdvReac Type Severity Reaction Status Date / Time No Known Allergies Allergy Mild Verified 01/14/25 11:00 Vital Signs Vital Signs - 24 hr 01/14/25 11:01 Temperature 97 F L Pulse Rate 54 L Respiratory Rate 18 Blood Pressure 145/91 H Pulse Oximetry 100 Oxygen Delivery Room Air Exam Const: General: cooperative and healthy appearing Resp: Effort & Inspection: normal respiratory effort and able to speak in complete sentences Auscultation: clear to auscultation bilaterally Cardio: Rate: regular rate Rhythm: regular rhythm GI: Inspection: normal to inspection GI Palp: No No hepatosplenomegaly present Auscultation: normal bowel sounds Rectal Exam: deferred Skin: General skin exam: normal color Psych: Appearance: grossly normal Mental Status: mental status grossly normal Assessment and Plan Assessment and plan (1) Colon cancer screening: Code(s): Z12.11 - Encounter for screening for malignant neoplasm of colon Status: Acute Assessment and Plan: The patient is deemed a good candidate for the procedure. Consent signed. Will proceed.
[2025-01-14 12:49] VITALS: BP 136/87; PULSE 62; RESP 17; O2SAT 100
[2025-01-14 12:59] VITALS: BP 138/94; PULSE 58; RESP 19; O2SAT 100
[2025-01-14 13:09] VITALS: BP 139/98; PULSE 53; RESP 16; O2SAT 100
== END 2025-01-14 13:18 | disposition home or self-care (01) ==
PROVIDERS: PCP Internal Medicine; Referring Provider Internal Medicine; Visit Provider Internal Medicine Gastroenterology
PROC: 0DJD8ZZ Inspection of Lower Intestinal Tract, Via Natural or Artificial Opening Endoscopic (ICD-10-PCS; CPT 45378; principal; 2025-01-14 12:30)
DX: Z12.11 Encounter for screening for malignant neoplasm of colon (principal); I48.91 Unspecified atrial fibrillation; E66.9 Obesity, unspecified; Z68.27 Body mass index [BMI] 27.0-27.9, adult; Z79.82 Long term (current) use of aspirin; Z79.899 Other long term (current) drug therapy; Z79.85 Long-term (current) use of injectable non-insulin antidiabetic drugs; Z98.890 Other specified postprocedural states; Z98.84 Bariatric surgery status; Z86.0100 Personal history of colon polyps, unspecified; Z86.79 Personal history of other diseases of the circulatory system; Z82.49 Family history of ischemic heart disease and other diseases of the circulatory system
CPT/HCPCS: 45378; J2704; J7120

== ENCOUNTER 2025-06-15 08:08 | Outpatient (CLI) | payer OTHER, SELFPAY ==
--- OUTSIDE RECORDS SUMMARY | 2025-06-15 08:29 | XMS_ITS | Clinical Summary ---
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 Gender Identity Not on file Sexual Orientation Not on file Plan of Treatment Health Maintenance Due Date Last Done Comments DTAP/TDAP/TD VACCINES (1 - Tdap) 1988 HEPATITIS B VACCINES (1 of 3 - 19+ 3-dose series) 06/13 COLORECTAL SCREENING 2014 Colorectal Cancer Screening 2014 FIT-DNA Q 3 years 2014 FIT/FOBT Q 1 year 2014 Flex Sig/CT Colonography Q 5 years 2014 ZOSTER VACCINE (1 of 2) 2019 INFLUENZA VACCINE (#1) 2025 Insurance [employer] CHOICE POS II Care Teams Account Manager Relationship Specialty Start Date End Date Hans Carl MD [address] [place] [address] PCP - General Internal Medicine 12/18/18
--- OUTSIDE RECORDS SUMMARY | 2025-06-15 08:29 | XMS_ITS | Clinical Summary ---
Author Organization [facility] Address [address] [place] [address] Care Team Providers Care Paper Inspector Name Role Phone Brian Riley DO Primary Care Provider [phone] Hans Carl MD Unavailable [phone] Miscellaneous, Not In File Unavailable Unava ilable Shanice Dow VACUUM CONDITIONER OPERATOR Unavailable [phone] Lucie Nance MD Unavailable Laurita Retana VACUUM CONDITIONER OPERATOR Unavailable Laurita Retana VACUUM CONDITIONER OPERATOR Unavailable [phone] Allergies No known active allergies Medications allopurinoL [...] 09/09/2021 Venous hypertension of left lower extremity 12/12 Assessment & Plan (12/31/2020 8:07 PM CDT): Patient has chronic venous hypertension left lower extremity with advanced skin changes. Documented reflux mid distal GSV with incompetent director [employer] vein. Have recommended laser ablation left great saphenous vein calf vein director [employer] ligation and division with phlebectomies. The procedure, [...] oz pur e alcohol) Social Connection and Isolation Panel Answer Date Recorded In a typical week, how many times do you talk on the phone with family, friends, or neighbors? More than three times a week 09/10/2021 How often do you get togethe r with friends or relatives? More than three times a week 09/10/2021 How often do you attend [facility] or restorationist services? More than 4 times per year 09/10/2021 Do you belong to any clubs o r organizations such as latter day groups, unions, fraternal or athletic groups, or [...] place to sleep or slept in a fci (including now)? No 09/10/2021 Sex and Gender Information Value Date Recorded Sex Assigned at Not on file Legal Sex Male 2:16 AM REAL ESTATE DIRECTOR Gender Identity Not on file Sexual Orientation [...] (375 lb 3.2 oz) 12/18/2021 9:23 AM REAL ESTATE DIRECTOR Height 205.7 cm (6' 9) 12/18/2021 9:23 AM REAL ESTATE DIRECTOR Body Mass Index 40.21 12/18/2021 9:23 AM REAL ESTATE DIRECTOR Plan of Treatment Health Maintenance Due Date Last Done Comments Colon Cancer Screening-Colonoscopy 1969 Depression Screening 1969 Hepatitis C Screening 1969 Prostate Cancer Screening-PSA 1969 Hepatitis B Screening 1987 Regular Well Visit/Exam 18-64 1987 Zoster Vaccine (1 of 2) 2019 Covid-19 Vaccine (2023-2 5 season) 2024 02/19/2022, 02/02/2021, 01/12/2021 Influenza Vaccine (#1) 2025 DTaP/Tdap/Td Vaccine (2 - Td or Tdap) 06/21/2028 06/21/2018 Pneumococcal vaccine <65 Aged Out No longer eligible based on patient's age to complete this topic Medical Devices Implanted Type Area Donkey Ride Operator Device Identifier Shelf Expiration Date Model / Serial / Lot [employer] [id number] System 6-12fr Mvp Venous Closure Vascade - [id number] - [id number] Implanted:Qty: 1 on 10/09/2021 by Blaine Butler MD at [facility] [employer] 07/26/2023 800-612C-1 0U / [id number] / [id number] [employer] [id number] System 6-12fr Mvp Venous Closure Vascade - [id number] - [id number] Implanted:Qty: 1 on 10/09/2021 by Blaine Butler MD at [facility] [employer] 07/26/2023 800-612C-1 0U / [id number] / [id number] [employer] [id number] System 6-12fr Mvp Venous Closure Vascade - [id number] - [id number] Implanted:Qty: 1 on 10/09/2021 by lBaine Butler MD at [facility] [employer] 07/26/2023 800-612C-1 0U / [id number] / [id number] [employer] [id number] System 6-12fr Mvp Venous Closure Vascade - [id number] - [id number] Implanted:Qty: 1 on 10/09/2021 by Blaine Butler MD at [facility] [employer] 07/26/2023 800-612C-1 0U / [id number] / [id number] [address] [address] [place] [address] [facility] Advance Directives For more information, please contact: [phone] * Full Code (Latest Code Status on File) Date Activated Date Inactivated Comments 09/09/2021 9:21 AM 09/10/2021 10:16 PM Care Teams Paper Inspector Relationship Specialty Start Date End Date Brian Riley DO PCP - General 12/26/20 Hans Carl MD 12/26/20 Miscellaneous, Not In File 09/10/21 Shanice Dow NP Nurse Practitioner Cardiology 10/09/21 Lucie Nance MD [facility], [address] [address] Consulting Physician Pain Management 12/18/21 Laurita Retana NP [facility], [address] [address] Nurse Practitioner Nurse Practitioner 01/02/22 Laurita Retana NP [address] [place] [address] Referring Physician Nurse Practitioner 01/02/22
--- OUTSIDE RECORDS SUMMARY | 2025-06-15 08:29 | XMS_ITS | Clinical Summary ---
Author Organization [facility] Address [address] [place] [address] Care Team Providers Care Customer Support Representative Name Role Phone Unavailable Primary Care Provider Unavailabl e Source Comments [facility],non-owned Affiliates and Associated Physician Practices is amultiple site organization consisting of ambulatory clinics and hospital sitesin [place], [place], [place] and [place]. This disclosure is being madepursuant to the Care Everywhere program and may not contain all information available regarding this patient. Last updated 18.[facility] Allergies No known active allergies Immunizations Immunization Administration Dates Next Due TDAP (7yrs+) 06/21/2018 Social History Tobacco Use Types Packs/Day Years Used Date Smoking Tobacco: Never Assessed Sex and Gender Information Value Date Recorded Sex Assigned at Not on file Legal Sex Male 4:49 PM CDT Gender Identity Not on file Sexual Orientation [...] VACCINE (1 of 2) 2019 COVID-19 VACCINE (2023-2 5 season) 2024 DEPRESSION SCREENING 10/13/2024 INFLUENZA VACCINE (#1) 2025 DTAP/TDAP/TD VACCINES (2 - T d or [...] patient's age to complete this topic [facility]
--- NOTE | 2025-07-06 12:24 | P.SLEEP_ITS ---
Sleep Study - Home Unattended Date of Study: 06/15/25 Ordering Provider: Monica Styles DO Interpreting Provider: Monica Styles DO Home Sleep Study Type: Watch PAT Height: 2.06 m Weight: 120.202 kg Body Mass Index: 28.3 Neck Circumference (inches): 15.5 [place]: 8 Reason for Sleep Study Daytime hypersomnia Sleep History The patient is a 55-year-old male that had a sleep study ordered by his sleep medicine physician for evaluation of sleep apnea. The patient admits to excessive daytime sleepiness and interruptions in breathing while asleep. He was diagnosed with mild sleep apnea and 2022. He denies snoring loudly. He denies choking or gasping at night. He denies having trouble breathing on his back. He denies morning headaches. He does have a dry or sore mouth /throat in the morning. He denies nocturnal heartburn. He urinates twice throughout the night. He denies having trouble falling asleep. He does have difficulty staying asleep. He denies having difficulty returning to sleep if he wakes up throughout the night. He denies any hypnotic or sedative use. He denies feeling anxious about sleep. He does feel tired or sleepy during the day. He does feel tired in the morning. He denies having the urge to fall asleep during the day. He does feel drowsy while driving. He denies sleep paralysis, cataplexy and hypnagogic/ hypnopompic hallucinations. He denies clenching or g rinding his teeth. He denies kicking or jerking his legs excessively. He does have a restless feeling in his legs it causes an urge to move his legs. It is worse with rest and better with activity. It occurs in the evening or at night time but does not cause a disturbance in the sleep. He goes to bed at 9:30 p.m. on work days and at 11:00 p.m. on his days off. It takes him 15 minutes to fall asleep. He gets 7-1/2 hours of sleep on work days and 6-1/2 hours of sleep on his days off. His sleep is not restorative on his days off. He denies taking any planned naps. He denies dream enactment behavior. He denies sleep walking. He consumes more than 5 caffeinated beverages per day. He consumes more than 3 alcoholic beverages 1-2 nights per week. He denies tobacco use. He exercises 5-7 nights per week. [facility] Past Medical History Medical History History of morbid obesity Long-term current use of testosterone cypionate Family history of diabetes mellitus History of atrial fibrillation Gout Surgical History Surgical History H/O cardiac radiofrequency ablation 10/09/2021 H/O laminectomy 2002 H/O gastric bypass 2008 Family History Family History Father Diabetes mellitus Gout Hypertension Acute myocardial infarction Grandparent Heart disease Rheumatoid arthritis Acute myocardial infarction H/O heart bypass surgery Sibling Gout Rheumatoid arthritis Hypertension Social History Social History Smoking status: Never smoker Alcohol intake: current Drinks per week: 12 Substance use: never Substance use type: does not use Lack of Transportation: No Lack of Food: Never True Current Housing: I Have Housing Concerned About Future Housing: No Difficulty Paying Gas/Electric Bills: No Difficulty Paying for Meds: No Currently Unemployed: No Education: Master's Degree or Higher Difficulty w/ Childcare or Family Care: No Living arrangements: with family Spiritual care concerns: No Medications Home Medications ?Medication ?Instructions ?Recorded ?Confirmed ?Type aspirin 81 mg tablet,delayed 81 mg PO DAILY 10/28/19 0 06/02/25 History release (Adult Low Dose Aspirin) cyanocobalamin (vitamin B-12) 1,000 mcg PO DAILY 10/2806/02/25 History 1,000 mcg capsule multivitamin 1 tablet PO DAILY 10/28/19 0 06/02/25 History ferrous sulfate 325 mg (65 mg 325 mg PO DAILY 10/30/22 06/02/25 History iron) tablet (Feosol) syringe with needle 3 mL 23 x 1 #50 ea 11/10/2306/02 Rx (BD Eclipse Luer-Radha) syringe with needle, safety 3 mL #100 ea 11/10/2305/14 11/06 Rx 18 gauge x 1 10/14 (Easy Touch FlipLock Syringe) tadalafil 10 mg tablet (Cialis) 10 mg PO DAILY PRN sex ual activity 09/07/24 06/02/25 Rx #10 tabs testosterone cypionate 200 mg/mL 140 mg (0.7 mL) IM WE EKLY #10 mL 02/11/25 06/02/25 Rx intramuscular oil (Depo-Testosterone) tirzepatide (weight loss) 15 15 mg (0.5 mL) subcut WEE KLY #2 mL 04/07/25 06/02/25 Rx mg/0.5 mL subcutaneous pen injector eszopiclone 2 mg tablet (Lunesta) 2 mg PO QHS #1 table t 06/02/25 06/02/25 Rx allopurinol 300 mg tablet See Rx Instructions .Route 0 06/10/25 Rx .COMPLEX #90 tabs colchicine 0.6 mg tablet 0.6 mg PO BID #60 tabs 07/04 Rx Sleep Procedure The sleep study was completed using SinaT a technically adequate device with seven channels: peripheral arterial tone, actigraphy, body position, snore, respiratory movement, pulse oximetry, sleep staging, and heart rate. Prior to using the device, the patient received verbal and written instructions for its application and was provided with the help desk phone number for additional telephonic instruction with 24-hour availability of qualified personnel to answer questions. The study was scored using CMS guidelines. Sleep Architecture The total recording time is 8 hrs, 38 min. The total sleep time is 7 hrs, 30 min. Sleep latency is 19 minutes. REM latency is 61 minutes. The patient had 12 episodes of waking. Sleep architecture shows 11.8% deep sleep, 74.4% light sleep, and (as % Total Sleep Time) showed NREM (Light 74.4%; Deep 11.8%), and a 13.8% stage REM. The patient spent 78.4% of total sleep time in the supine position. Sleep efficiency was 86.87. Respiratory Analysis The overall AHI (pAHI 4%:) is 5.6. The overall AHI (pAHI 3%:) is 8.3. The central AHI is 0.0. The AHI was 7.5 in NREM and 12.7 in REM sleep. The AHI was 10.2 in Supine and 1.3 in Non-supine sleep. Percent of Eric Coto respirations is 0.0. Oximetry Data The oxygen desaturation index (LELE 4%:) is 3.8. The mean saturation is 94%, and the lowest saturation is 87%. Time spent with saturation < 88% is 0.3 minutes. Snoring Profile Snoring average intensity is 41 dB. The patient snored above 45 decibels for 8.5 minutes, 1.9% of sleep time. Cardiac Profile The average pulse rate is 66 beats per minutes. The lowest pulse rate is 51 bpm. The highest pulse rate reported is 96 pm. Atrial fibrillation was not detected. Premature beats occur 0.5 per minute. Assessment and Plan Assessment and Plan (1) RAMEZ (obstructive sleep apnea): Code(s): G47.33 - Obstructive sleep apnea (adult) (pediatric) Status: Acute Assessment and Plan: The patient had an overall AHI of 5.6 with desaturation down to 87%. This is consistent with mild sleep apnea. Due to the patient's Restless Legs Syndrome, he qualifies for treatment. I recommend that the patient be prescribed AutoPAP 5-15 cm H2O, CPAP mask/filters/tubing and heated humidity. A mandibular advancement device is also an acceptable treatment option. This should be used with all episodes of sleep.? Compliance should be reviewed within 31-90 days of starting therapy for usage greater than 4 hours per night greater than 70% of the nights. The patient should be asked about symptoms such as?excessive daytime sleepiness, quality of sleep, decreased nocturia, increased?mental functioning such as memory, mood, and concentration. Data The data obtained during this sleep study is adequate for interpretation. Certification This sleep study has been reviewed by a board certified sleep medicine physician.
[2025-07-06 14:03] VITALS: BMI 28.3
== END 2025-06-16 10:31 | disposition home or self-care (01) ==
LOC: ANHCSM 08:17
PROVIDERS: PCP Internal Medicine; Visit Provider Family Medicine
DX: G47.9 Sleep disorder, unspecified (principal); G47.33 Obstructive sleep apnea (adult) (pediatric)
CPT/HCPCS: 95800

== ENCOUNTER 2025-09-07 12:59 | Outpatient (CLI) | payer OTHER, SELFPAY ==
--- NOTE | 2025-09-07 | ECG_ITS ---
Test Date: 2025-09-07 13:23:05 Measurements Intervals [place] Rate: 66 P: 38 AR: 152 QRS: 44 QRSD: 99 T: 39 QT: 382 QTc: 400 Interpretive Statements SINUS RHYTHM LOW QRS VOLTAGE IN PRECORDIAL LEADS [QRS DEFLECTION < 1.0 mV IN CHEST LEADS] No previous ECG available for comparison Electronically Signed On 09-07-2025 13:43:39 LOCKSTITCH CUP SETTER by Soto Landrum M.D.
--- OUTSIDE RECORDS SUMMARY | 2025-09-07 13:07 | XMS_ITS | Clinical Summary ---
Author Organization [facility] Address [address] [place] [address] Care Team Providers Care Bus Steward Name Role Phone Unavailable Primary Care Provider Unavailabl e Source Comments [facility],non-owned Affiliates and Associated Physician Practices is amultiple site organization consisting of ambulatory clinics and hospital sitesin [place], [place], [place] and [place]. This disclosure is being madepursuant to the Care Everywhere program and may not contain all information available regarding this patient. Last updated 18.[facility] Allergies No known active allergies Immunizations Immunization [...] 2019 ZOSTER VACCINE (1 of 2) 2019 DEPRESSION SCREENING 10/13/2024 COVID-19 VACCINE (1 - 2024-2 6 season) 2025 INFLUENZA VACCINE (#1) 2025 DTAP/TDAP/TD VACCINES (2 [...] patient's age to complete this topic [facility]
--- OUTSIDE RECORDS SUMMARY | 2025-09-07 13:07 | XMS_ITS | Clinical Summary ---
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
--- OUTSIDE RECORDS SUMMARY | 2025-09-07 13:07 | XMS_ITS | Clinical Summary ---
Author Organization [facility] Office Center Address [address] [place] [address] Care Team Providers Care Meteorological Engineer Name Role Phone Brian Riley DO Primary Care Provider [phone] Hans Carl MD Unavailable [phone] Miscellaneous, Not In File Unavailable Unava ilable Shanice Dow ROAD CROSSING GUARD Unavailable Lucie Nance MD Unavailable Laurita Retana ROAD CROSSING GUARD Unavailable Laurita Retana NP Unavailable [phone] Allergies No known active allergies Medications allopurinoL [...] Documented reflux mid distal GSV with incompetent photographic process attendant vein. Have recommended laser ablation left great saphenous vein calf vein photographic process attendant ligation and division with phlebectomies. The procedure, indications and all risks have been thoroughly explained to the patient he understands and agrees to proceed Atrial flutter (CMS/HCC) 05/31/2014 Overview (01/16/2017): A Fib / Flutter Lumbago 07/01/2013 Lumbar radiculopathy 07/01/2013 Encounters Date Type Department Care Team Description 07/05/2025 11:11 AM CDT - 07/05/2025 11:59 PM CDT [place] [address] Right shoulder pain, unspecified chronicity Discharge Disposition: Discharge to home or self care from Last 3 Months Immunizations Immunization Administration Dates Next Due Tdap [...] often do you attend chur ch or mandaeism services? 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 Plan of Treatment Health Maintenance Due Date Last Done Comments Colon Cancer Screening-Colonoscopy 1969 Depression Screening 1969 Hepatitis C Screening 1969 Prostate Cancer Screening-PSA 1969 Hepatitis B Screening 1987 Regular Well Visit/Exam 18-64 1987 Zoster Vaccine (1 of 2) 2019 Covid-19 Vaccine (2024- season) 2025 02/19/2022, 02/19/2022, 02/02/2021, Additional history exists Influenza Vaccine (#1) 2025 DTaP/Tdap/Td Vaccine (2 - Td or Tdap) 06/21/2028 06/21/2018 Pneumococcal vaccine <65 Aged Out No longer eligible based on patient's age to complete this topic Medical Devices Implanted Type Area Director Of Sales Marketing Device Identifier Shelf Expiration Date Model / Serial / Lot [employer] [id number] System 6-12fr Mvp Venous Closure Vascade - [id number] - [id number] Implanted:Qty: 1 on 10/09/2021 by Blaine Butler MD at [facility] [employer] 07/26/2023 800-612C-1 0U / [id number] / [id number] [employer] [id number] System 6-12fr Mvp Venous Closure Vascade - [id number] - [id number] Implanted:Qty: 1 on 10/09/2021 by Blaine Butler MD at [facility] [employer] 07/26/2023 800-612C-1 0U / [id number] / [id number] [employer] [id number] System 6-12fr Mvp Venous Closure Vascade - [id number] - [id number] Implanted:Qty: 1 on 10/09/2021 by Blaine Butler MD at [facility] [employer] 07/26/2023 800-612C-1 0U / [id number] / [id number] [employer] [id number] System 6-12fr Mvp Venous Closure Vascade - [id number] - [id number] Implanted:Qty: 1 on 10/09/2021 by Blaine Butler MD at [facility] [employer] 07/26/2023 800-612C-1 0U / [id number] / [id number] Procedures Procedure Name Priority Date/Time Associated Diagnosis Comments MRI SHOULDER RIGHT WO CONTRAST Schedule Routine, Read Routine (OP Routine) 07/05/2025 12:02 PM CDT Right shoulder pain, unspecified chronicity from Last 3 Months Results * MRI Shoulder Right WO Contrast (07/05/2025 12:02 PM CDT) Anatomical Region Laterality Modality Upper Extremities Right Magnetic Reson ance 07/05/2025 12:5 4 PM CDT Narrative 07/05/2025 4:08 PM CDT EXAM DESCRIPTION: MRI SHOULDER RIGHT WO CONTRAST REASON FOR STUDY: pain in right shoulder Rt shoulder pain x 3 months , completed PT with minimal relief No known injury/trauma Patient states it hurts worse while working out TECHNIQUE: Multiplanar, multisequence MRI of the right shoulder was performed without contrast. COMPARISON: None available FINDINGS: There is a type 2 acromion. The coracoacromial ligament is thin. There is moderate acromioclavicular joint osteoarthritis. There is moderate subacromial subdeltoid bursitis. The rotator cuff muscle bulk is normal. The subscapularis is intact. The biceps tendon is located within the bicipital groove. 2.6 x 3.5 cm full-thickness tear of the supraspinatus and infraspinatus is present. This is superimposed on cuff tendinosis. On this non arthrographic evaluation, there is a focal tear of the superior glenoid labrum at the 12:00 position. Nondisplaced tear of the posteroinferior glenoid labrum is present extending from approximately 7:30-6:00. Deep partial and full-thickness cartilage loss of the posterior glenoid is present with subchondral edema. Partial-thickness cartilage loss of the humeral head. A physiologic amount of fluid is present within the joint space. There are no loose bodies. IMPRESSION: 1. 2.6 x 3.5 cm full-thickness tear of the right supraspinatus and infraspinatus superimposed on cuff tendinosis. 2. Moderate right acromioclavicular joint osteoarthritis with moderate subacromial subdeltoid bursitis. 3. Mild right glenohumeral joint chondrosis with nondisplaced tears of the superior and posteroinferior glenoid labrum. THIS IS AN ELECTRONICALLY VERIFIED FINAL REPORT 07/05/2025 4:08 PM - Electronically signed by Hans Spencer M.D. T: Report ID: [id number] Reading Location: [place] [address] Procedure Note Hans Spencer MD - 07/05/2025 EXAM DESCRIPTION: MRI SHOULDER RIGHT WO CONTRAST REASON FOR STUDY: pain in right shoulder Rt shoulder pain x 3 months , completed PT with minimal relief No known injury/trauma Patient states it hurts worse while working out TECHNIQUE: Multiplanar, multisequence MRI of the right shoulder was performed without contrast. COMPARISON: None available FINDINGS: There is a type 2 acromion. The coracoacromial ligament is thin. There is moderate acromioclavicular joint osteoarthritis. There ismoderate subacromial subdeltoid bursitis. The rotator cuff muscle bulk is normal. The subscapularis is intact. The biceps tendon is located within the bicipital groove. 2.6 x 3.5 cm full-thickness tear of the supraspinatus and infraspinatus is present.This is superimposed on cuff tendinosis. On this non arthrographic evaluation, there is a focal tear of thesuperior glenoid labrum at the 12:00 position. Nondisplaced tear of the posteroinferior glenoid labrum is present extending from approximately 7:30-6:00. Deep partial and full-thickness cartilage loss of the posterior glenoid is present with subchondral edema. Partial-thickness cartilageloss of the humeral head. A physiologic amount of fluid is present within the joint space. There are no loose bodies. IMPRESSION: 1. 2.6 x 3.5 cm full-thickness tear of the right supraspinatus and infraspinatus superimposed on cuff tendinosis. 2. Moderate right acromioclavicular joint osteoarthritis with moderate subacromial subdeltoid bursitis. 3. Mild right glenohumeral joint chondrosis with nondisplaced tears ofthe superior and posteroinferior glenoid labrum. THIS IS AN ELECTRONICALLY VERIFIED FINAL REPORT 07/05/2025 4:08 PM - Electronically signed by Hans Spencer M.D. T: Report ID: [id number] Reading Location: [id number] [place] Provider Transcribed Order IMG MRI PROCEDURES Fi nal Result from Last 3 Months Insurance [employer] [facility] HMO Advance Directives For more information, please contact: [phone] * Full Code (Latest Code Status on File) Date Activated Date Inactivated Comments 09/09/2021 9:21 AM 09/10/2021 10:16 PM Care Teams Meteorological Engineer Relationship Specialty Start Date End Date Brian Riley PCP - General 12/26/20 Hans Carl MD 12/26/20 Miscellaneous, Not In File 09/10/21 Shanice Dow NP Nurse Practitioner Cardiology 10/09/21 Lucie Nance MD [address] [facility], [address] [address] Consulting Physician Pain Management 12/18/21 Laurita Retana NP [address] [facility], [address] [address] Nurse Practitioner Nurse Practitioner 01/02/22 Laurita Retana NP [address] [place] [address] Referring Physician Nurse Practitioner 01/02/22
== END 2025-09-07 13:00 | disposition home or self-care (01) ==
LOC: ANHCARD 13:01
PROVIDERS: PCP Internal Medicine; Visit Provider Nurse Anesthetist, Certified Registered
DX: Z01.818 Encounter for other preprocedural examination (principal)
CPT/HCPCS: 93005